=== PATIENT | female | born 1985 | race Caucasian/White ===

== ENCOUNTER → 2024-05-05 11:14 | Outpatient (REF) | payer OTHER, SELFPAY | LOC: WDC 11:14 | PROVIDERS: ATTENDING PHYSICIAN Obstetrics & Gynecology Gynecology; FAMILY PHYSICIAN Family Medicine | DX: Z12.31 Encounter for screening mammogram for malignant neoplasm of breast (principal) | CPT/HCPCS: 77063; 77067 ==

== ENCOUNTER → 2024-06-23 14:46 | Outpatient (REF) | payer OTHER, SELFPAY ==
[2024-06-28 22:14] LABS: HPV, High Risk Not Detected; HPV, High Risk Source Anal
== END ==
LOC: CLAB 14:46
PROVIDERS: ATTENDING PHYSICIAN Physician Assistant
DX: Z86.19 Personal history of other infectious and parasitic diseases (principal)
CPT/HCPCS: 87624; 88112

== ENCOUNTER → 2024-06-24 08:23 | Outpatient (REF) | payer OTHER, SELFPAY | LOC: HWRAD 08:23 | PROVIDERS: ATTENDING PHYSICIAN Family Medicine; REFERRING PHYSICIAN Physician Assistant | DX: R10.32 Left lower quadrant pain (principal); N80.9 Endometriosis, unspecified; K92.1 Melena | CPT/HCPCS: 76700; 76830; 76856 ==

== ENCOUNTER → 2024-12-08 08:12 | Outpatient (REF) | payer OTHER, SELFPAY | LOC: RAD 08:12 | PROVIDERS: ATTENDING PHYSICIAN Nurse Practitioner Adult Health; FAMILY PHYSICIAN Family Medicine | DX: S16.1XXA Strain of muscle, fascia and tendon at neck level, initial encounter (principal); M54.2 Cervicalgia; S19.9XXD Unspecified injury of neck, subsequent encounter | CPT/HCPCS: 72040; 72072 ==

== ENCOUNTER 2025-03-19 00:05 | Emergency (ER) | payer OTHER, SELFPAY ==
[2025-03-19 00:11] VITALS: BP 124/94
--- NOTE | 2025-03-19 00:41 | ED.SKININJ ---
HPI-Injury
General
Chief Complaint: Bite
Source: patient
Exam Limitations: none
Time Seen by Provider: 03/19/25 00:16
History of Present Illness-Injury
Initial Injury comments:
Patient here for exposure to bat in the house. She may have been sleeping last night when the bat was in the house. They also found the bat today and Fever. They plan to testing the back. Here for rabies prophylaxis
Phy Exam
Physical Exam
Physical Exam:
General: Well-appearing female no acute respiratory distress
Course
Orders/Labs/Results
Orders:
Orders
03/19/25 00:40
Rabies Immune Globulin/Pf [HyperRAB] 1,244 unit IM NOW STA
Rabies Vaccine (Pcec)/Pf [Rabavert Rabies Vacc W-Diluent] 2.5 unit IM .ONCE ONE
Vital Signs
Initial and Last Documented VS:
Initial Vital Signs
Temp Pulse Resp BP Pulse Ox
98 F 84 20 124/94 98
03/19/25 00:11 03/19/25 00:11 03/19/25 00:11 03/19/25 00:11 03/19/25 00:11
Last Documented Vital Signs
Temp Pulse Resp BP Pulse Ox
98 F 84 20 124/94 98
03/19/25 00:11 03/19/25 00:11 03/19/25 00:11 03/19/25 00:11 03/19/25 00:11
MDM/Problems Addressed
Differential Diagnosis Includes:
Bat exposure in the house. Risk and benefits of prophylaxis were discussed. Recommendations were discussed. Rabies prophylaxis was initiated
*Pulse Oximetry
SaO2: 98
Patient hypoxic: no
*Critical Care Note
Total Time (30-74mins, 75-104mins- exclusive of procedures): Not Applicable
ED Attending Note
-
Portions of this chart may have been created with voice recognition software.� Occasional wrong word or��sound alike� substitutions may have occurred due to the inherent limitations of voice recognition software.
Discharge Plan
Departure
Patient Disposition: Home (Routine Discharge)
Date of Disposition: 03/19/25
Time of Disposition: 00:42
Patient with high blood pressure during this ER visit?: No
Discharge Problem:
Rabies, need for prophylactic vaccination against
Instructions: Rabies
Prescriptions:
New
RabAvert (PF) 2.5 unit Suspension For Reconstitution
1 ml IM . DIRECTED Qty: 3 0RF
Rx Instructions:
See Rabies Vaccine Post Exposure Prophylaxis Instruction Sheet for Dosing Instructions
Stand Alone Forms: Rabies Vaccine Post Exp Dosing
Activity Restrictions/Additional Instructions:
You may follow-up with the outpatient infusion center for your second vaccine as scheduled
Interventions
Interventions:
*Risk Screen - Suicide Last Done: 03/19/25 00:11
*Neglect/Abuse Screening Last Done: 03/19/25 00:11
Discharge Date and Time
Print Language: AMHARIC
[2025-03-19] MEDS: RABAVERT RABIES VACC W-DILUENT 2.5 UNIT IM (00:58)
== END 2025-03-19 01:33 | disposition home or self-care (01) ==
LOC: EMR 00:05
PROVIDERS: EMERGENCY PHYSICIAN Emergency Medicine; FAMILY PHYSICIAN Family Medicine
DX: Z20.3 Contact with and (suspected) exposure to rabies (principal); Z29.14 Encounter for prophylactic rabies immune globulin; Z23 Encounter for immunization
CPT/HCPCS: 96372; 90471; 99284; 90375; 90675